=== PATIENT | male | born 1960 | race Caucasian/White ===

== ENCOUNTER → 2025-01-02 02:09 | Outpatient (CLI) | payer MEDICARE, SELFPAY ==
--- NOTE | 2025-01-02 | DI.CT_ITS ---
Exam(s) CT CHEST WO EXAM: CT CHEST WO CLINICAL HISTORY: SOLITARY PULMONARY NODULE, R91.1. TECHNIQUE: Multi planar reconstructions were performed. CONTRAST MATERIAL: None COMPARISON: CT CT CHEST LOW DOSE CANCER ANNUAL SCREENING from 12/22/2023 (outside institution). FINDINGS: CHEST: LUNGS: Tiny calcified granuloma measure measuring 1 mm in the right upper lobe is unchanged. Small fissure related nodule in the right lung remains unchanged. In the left lung previously described small nodule in the superior lingular segment appears unchanged. Bony excrescence on the inner aspect of the left anterior 5th rib is unchanged. No adjacent lung findings at this level. There are no pleural effusions. MEDIASTINUM: There is no obvious hilar nor mediastinal adenopathy. Visualized thyroid unremarkable.No obvious axillary adenopathy CARDIAC: Heart size is normal. There is no pericardial effusion.Ascending thoracic aorta is slightly prominent measuring 3.8 cm. VISUALIZED UPPER ABDOMEN:No adrenal masses. No ascites. OSSEOUS: Benign-appearing bony excrescence off the inner aspect of the anterior left 5th rib is again noted, unchanged. No lytic rib lesions identified. No compression fractures.. IMPRESSION: 1. Stable appearance of small benign-appearing bilateral lung nodules without significant change compared to prior outside CT scan of 12/22/2023. 2. No pleural effusions nor obvious intrathoracic adenopathy. 3. Appropriate follow-up is repeat CT scan in 1 year, earlier if clinically indicated. RADIATION DOSE DELIVERED: 221.66mGy.cm Total DLP DATA REPOSITORY: All CT scans at this facility are submitted to the National Radiology Data Registry (NRDR) Dose Index Registry (DIR) with the [employer] ([employer]). RADIATION OPTIMIZATION: All CT scans at this facility use at least one of these dose optimization techniques: automated exposure control; mA and/or kV adjustment per patient size (includes targeted exams where dose is matched to clinical indication); or iterative reconstruction.
== END ==
PROVIDERS: PCP Nurse Practitioner Family; Visit Provider Nurse Practitioner Family
DX: R91.1 Solitary pulmonary nodule (principal); R91.8 Other nonspecific abnormal finding of lung field
CPT/HCPCS: 71250

== ENCOUNTER 2025-01-12 19:17 | Emergency (ER) | payer MEDICARE, SELFPAY ==
[2025-01-12] VITALS (17 sets, daily range): BP systolic 138–155; BP diastolic 90–97; PULSE 56–86; RESP 10–20; TEMP 36.6; O2SAT 94–97
--- NOTE | 2025-01-12 20:22 | DI.RAD_ITS ---
Exam(s) XR TIB/FIB LT EXAM: XR TIB/FIB LT CLINICAL HISTORY: lateral sims pain. TECHNIQUE: 2D digital imaging was performed. COMPARISON: No exams were available for comparison FINDINGS: 3 views No evidence of obvious acute fracture. Thickened cortex in the proximal 3rd of the fibula may be healed fracture site. There are mild degenerative changes in the knee. In the proximal half of the tibia there is a subtle lucency in the anterior cortex, possibly stress reaction. Inferior calcaneal spur noted. Also calcification at the posterior calcaneus Achilles insertion site. IMPRESSION: On the lateral view there is a thin lucent line in the anterior cortex of the proximal half of the tibia. In correlation with any history of trauma or repetitive microtrauma. If clinically indicated follow-up MRI with tibial stress reaction protocol can be performed. DATA REPOSITORY: RADIATION DOSE DELIVERED:
--- NOTE | 2025-01-12 20:38 | W.ED.GENAD ---
Discharge Plan Disposition Patient Disposition: Home Condition: Good Discharge Details Clinical Impression: Pain in left sims Primary Care Provider: Chrissy Florian ED Provider: Kiana Edmonds Home Meds and New Rx's Prescriptions: New apixaban 5 mg tablet 5 mg PO BID Qty: 20 0RF Rx Instructions: Take 2 tablets (10 mg total) by mouth twice a day for 7 days, then 1 tablet (5 mg) twice a day by mouth No Action clonazepam [Klonopin] 0.5 mg tablet 0.5 mg PO BID PRN Rx Instructions: take 1 tablet twice a day by oral route as needed for 30 days, for anxiety/panic disorder tamsulosin 0.4 mg capsule 0.4 mg PO DAILY pantoprazole 40 mg tablet,delayed release (DR/EC) 40 mg PO DAILY lisinopril 10 mg tablet 10 mg PO DAILY escitalopram oxalate 20 mg tablet 20 mg PO DAILY clonazepam [Klonopin] 0.5 mg tablet 0.5 mg PO DAILY tamsulosin 0.4 mg capsule 0.4 mg PO DAILY pantoprazole 40 mg tablet,delayed release (DR/EC) 40 mg PO DAILY lisinopril 10 mg tablet 10 mg PO DAILY escitalopram oxalate [Lexapro] 20 mg tablet 20 mg PO DAILY Discharge Instructions Additional Instructions: Please follow-up according to instructions diagnostic imaging first thing Tuesday to schedule an outpatient ultrasound to evaluate for DVT in the left lower leg. Please call your primary care provider Tuesday to discuss results. The meantime, you are being treated with Eliquis for presumed DVT. Please take 10 mg by mouth twice a day for the first 7 days, then 5 mg twice a day. Continue until you are advised by your primary care provider or specialist. Return to emergency care if you develop new chest pain, difficulty breathing, episodes of passing out, experience any head injury, uncontrollable nosebleeds, rectal bleeding, or if you are very worried you need to be checked again immediately. Stand Alone Forms: Portal Information Referrals: Chrissy Florian [Primary Care Provider, Medicine] Discharge Orders Other Ambulatory Orders: US lower extremity venous LT (Routine) Timeframe: 3 Days Facility: [facility] - Location: DIAGNOSTIC IMAGING Ordered By: Kiana Sy HPI General Date/Time Provider Initiated Documentation: 01/12/25 19:20. HPI Narrative: Claudio is 64-year-old male who presents to the emergency department today for evaluation of left sims pain. He reports that this started this afternoon after waking up from a nap, denies associated trauma. Described as a sharp stabbing pain that is consistent, similar to previous episodes of DVT in his leg. Denies fever/chills, chest pain, shortness of breath, palpitations, distal numbness/tingling, other myalgias. No recent surgery/immobility or known inciting factors. 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 Denies history of GI bleed, regular EtOH use, cancer diagnosis, CVA/ICH, bleeding disorders. Related Data Home Medications Medication Instructions Recorded Confirmed clonazepam 0.5 mg tablet (Klonopin) 0.5 mg PO BID PRN 11/19/24 01/12/25 escitalopram oxalate 20 mg tablet 20 mg PO DAILY 11/19/24 01/12/25 lisinopril 10 mg tablet 10 mg PO DAILY 11/19/24 01/12/25 pantoprazole 40 mg tablet,delayed 40 mg PO DAILY 11/19/24 01/12/25 release tamsulosin 0.4 mg capsule 0.4 mg PO DAILY 11/19/24 01/12/25 clonazepam 0.5 mg tablet (Klonopin) 0.5 mg PO DAILY 12/06/24 01/12/25 escitalopram oxalate 20 mg tablet 20 mg PO DAILY 12/06/24 01/12/25 (Lexapro) lisinopril 10 mg tablet 10 mg PO DAILY 12/06/24 01/12/25 pantoprazole 40 mg tablet,delayed 40 mg PO DAILY 12/06/24 01/12/25 release tamsulosin 0.4 mg capsule 0.4 mg PO DAILY 12/06/24 01/12/25 apixaban 5 mg tablet 5 mg PO BID #20 tabs 01/12/25 Previous Rx's Medication Instructions Recorded apixaban 5 mg tablet 5 mg PO BID #20 tabs 01/12/25 Allergies Allergy/AdvReac Type Severity Reaction Status Date / Time No Known Allergies Allergy Verified 01/12/25 19:24 General Stated Complaint: Vascular JAREN: 3 Exam Const General: cooperative, healthy appearing, comfortable, no acute distress and well developed Nutritional Appearance: average body habitus and well nourished Orientation: alert and oriented x3 Resp Effort & Inspection: normal respiratory effort and able to speak in complete sentences Skin General skin exam: no rashes or lesions noted Trauma: no lacerations or abrasions Neuro General: patient alert, patient oriented x3, tone normal, moves all extremities and no focal motor deficits Motor: muscle tone normal throughout and strength 5/5 throughout Sensory Exam: no sensory deficits noted Extrem General: normal to inspection and full ROM Right lower extremity: normal to inspection, full ROM, normal capillary refill, lower leg Details: normal to inspection, tenderness (L lateral sims) and no edema; no erythema, no localized swelling, no palpable cords, no abrasions, no lacerations, no ecchymosis, no crepitus, no deformity and no unusual warmth and foot Details: normal capillary refill and no edema Course Vital Signs Vital signs: Vital Signs Temperature 36.6 C 01/12/25 19:21 Pulse 86 01/12/25 19:21 Respiratory Rate 20 01/12/25 19:21 Blood Pressure 138/93 H 01/12/25 19:21 Pulse Oximetry 96 01/12/25 19:21 Temperature 36.6 C 01/12/25 19:21 Pulse 86 01/12/25 19:21 Respiratory Rate 20 01/12/25 19:21 Blood Pressure 138/93 H 01/12/25 19:21 Blood Pressure Position Sitting 01/12/25 19:21 Pulse Oximetry 96 01/12/25 19:21 Oxygen Delivery Method Room Air 01/12/25 19:21 Oxygen Flow Rate 0 01/12/25 19:21 Medical Decision Making Claudio is a 64-year-old male who presents to the emergency department today for evaluation of left sims pain concerning for DVT based on his previous history. Denies other associated symptoms Physical exam remarkable for tenderness with palpation to left lateral sims. No erythema, warmth, or edema noted. +CMS to toes, no numbness/tingling or distal edema D/dx includes but is not limited to: DVT, superficial venous thrombus, muscle spasm, stress fracture, neuropathy I independently interpreted the following tests: CBC, CMP, magnesium reassuring. Creatinine 1.2, no baseline available for comparison. D-dimer elevated at 1332. As we do not have ultrasound available on the weekends, will order outpatient ultrasound for Tuesday morning. While in the emergency dept patient declined Tylenol. History and presentation most consistent with DVT, as patient has elevated D-dimer with symptoms identical to previous episode of DVT. Patient ultrasound ordered for Tuesday. Eliquis initiated. Recommend close follow-up with PCP for treatment/management of DVT. Reviewed discharge instructions with patient, including symptomatic management, use of Eliquis, importance of follow up with PCP, and red flags indicating need for return to emergency care. Pt voices agreement with plan of care Imaging Data Radiologic Study: Radiologist's impression: PROCEDURE INFORMATION: Exam: XR Left Tibia and Fibula Exam date and time: 01/12/2025 8:33 PM Age: 64 years old Clinical indication: Pain; Lower leg; Left; Additional info: Lateral sims pain, PT sts h/o blood clots, stopped taking blood thinners x 9 mo ago. TECHNIQUE: Imaging protocol: Radiologic exam of the left tibia and fibula. Views: 2 views. COMPARISON: No relevant prior studies available. FINDINGS: Bones/joints: No evidence of acute fracture or malalignment. Smooth contour irregularity along the lateral margin of the proximal fibular metadiaphysis on the AP view only likely represents variant contour irregularity at the muscular origins or possibly remote prior injury, with no features to favor acute injury or aggressive periostitis. Soft tissues: No gross soft tissue abnormalities. IMPRESSION: 1. No acute findings. 2. Smooth periosteal undulation at the lateral margin of the proximal fibula may relate to remote prior injury or anatomic variation. PFSH All Active Problems (Updated 01/12/25 @ 22:16 by Kiana Sy) Pain in left sims (Acute) Plantar fascial fibromatosis (Acute) Benign prostatic hyperplasia (Chronic) Hypertensive disorder (Chronic) Depressive disorder (Chronic) Anxiety disorder (Acute) Nicotine dependence (Acute) Erectile dysfunction (Acute) Lung cyst (Acute) Impaired fasting blood sugar (Acute) Male hypogonadism (Acute) Essential hypertension (Acute) Hyperlipidemia (Acute) Hypercoagulable state (Acute) Generalized anxiety disorder (Acute) GERD without esophagitis (Acute) Fatigue (Acute) DVT of lower extremity (deep venous thrombosis) (Acute) Cough (Acute) Bronchitis (Acute) Family History (Updated 11/19/24 @ 15:33 by Kerry Brock RN) Father Diabetes Prostate cancer Mother Polyp of colon Hypertension Son Mental health problem Social History (Updated 11/19/24 @ 15:31 by Kerry Brock RN) Smoking/Tobacco Use Status: Former Tobacco Use tobacco type: cigarettes Smoking risk assessment performed?: Yes Drug use: Occasionally Substance use type: marijuana PAWSS Have you Been Recently Intoxicated or Drunk Within the Last 30 days?: No Have you Ever Experienced Previous Episodes of Alcohol Withdrawal?: No Have you ever Experienced Withdrawal Seizures?: No Have you ever Experienced Delirium Tremens(DT)s?: No Have you ever undergone Alcohol Rehabilitation Treatment (i.e, inpt ot outpatient treatment programs)?: No Have you ever Experienced Blackouts?: No Have you ever Combined Alcohol with other Downers within the last 90 days?: No Have you ever Combined Alcohol with any other Substance of Abuse during the last 90 days?: No Positive Blood Alcohol level on Presentation? [PCS.BAL]: No Evidence of Increased Autonomic Activity (i.e. HR>120, tremor, sweating, agitation, nausea)?: No Result: 0
[2025-01-12 21:14] LABS: Abs Immature Grans 0.03 10^3/uL (0.0-0.06); HCT 47.4 % (40.0-50.0); HGB 15.8 g/dL (13.5-17.5); Immature Grans % 0.4 %; MCH 28.7 pg (27.0-33.0); MCHC 33.3 % (32.0-36.0); MCV 86 fL (80-95); MPV 10.0 fL (8.0-11.0); Platelet Count 222 10^3/uL (130-400); RBC 5.51 10^6/uL (4.36-5.78); RDW 12.6 % (11.8-14.1); RDW-SD 39.3 fL; WBC 7.97 10^3/uL (4.4-10.8)
--- NOTE | 2025-01-12 21:20 | DI.VRAD_ITS ---
PROCEDURE INFORMATION: Exam: XR Left Tibia and Fibula Exam date and time: 01/12/2025 8:33 PM Age: 64 years old Clinical indication: Pain; Lower leg; Left; Additional info: Lateral sims pain, PT sts h/o blood clots, stopped taking blood thinners x 9 mo ago. TECHNIQUE: Imaging protocol: Radiologic exam of the left tibia and fibula. Views: 2 views. COMPARISON: No relevant prior studies available. FINDINGS: Bones/joints: No evidence of acute fracture or malalignment. Smooth contour irregularity along the lateral margin of the proximal fibular metadiaphysis on the AP view only likely represents variant contour irregularity at the muscular origins or possibly remote prior injury, with no features to favor acute injury or aggressive periostitis. Soft tissues: No gross soft tissue abnormalities. IMPRESSION: 1. No acute findings. 2. Smooth periosteal undulation at the lateral margin of the proximal fibula may relate to remote prior injury or anatomic variation. Dictated and Authenticated by: Shaggy Field MD. Orderin Bria Bruno MD
[2025-01-12 21:30] LABS: Magnesium 2.1 mg/dL (1.6-2.6)
[2025-01-12 21:31] LABS: ALT 28 U/L (10-49); AST 23 U/L (<34); Albumin 4.7 g/dL (3.4-5.0); Alkaline Phosphatase 41 U/L (46-116); Anion Gap 7 mmol/L (3-11); BUN 12 mg/dL (9-23); Bilirubin, Total 0.80 mg/dL (0.2-1.2); CO2 30.0 mmol/L (20.0-31.0); Calcium 9.9 mg/dL (8.3-10.6); Chloride 105 mmol/L (98-107); Glucose 95 mg/dL (74-106); Potassium 3.9 mmol/L (3.5-5.1); Sodium 142 mmol/L (136-145); Total Protein 7.3 g/dL (5.7-8.2)
[2025-01-12 21:38] LABS: D-Dimer 1332 ng/mlFEU (<500)
[2025-01-12] MEDS: Apixaban 5 MG TAB 10 MG PO ×2 (22:39)
== END 2025-01-12 22:35 | disposition home or self-care (01) ==
PROVIDERS: Emergency Provider Nurse Practitioner Family; PCP Nurse Practitioner Family
DX: M79.662 Pain in left lower leg (principal)
CPT/HCPCS: 99283; 99284; 36415; 80053; 73590; 83735; 85025; 85379

== ENCOUNTER → 2025-01-14 07:49 | Outpatient (CLI) | payer MEDICARE, SELFPAY ==
--- NOTE | 2025-01-14 07:00 | DI.US_ITS ---
Exam(s) US LOWER EXTREMITY VENOUS LT EXAM: US LOWER EXTREMITY VENOUS LT CLINICAL HISTORY: L sims pain, + d-dimer, h/o DVT with same sx,m79.662. TECHNIQUE: Lower extremity venous ultrasound performed using grayscale, color- flow, and spectral Doppler analysis. COMPARISON: No exams were available for comparison FINDINGS: The common femoral, femoral and popliteal veins demonstrate normal compressibility, augmentation, and color Doppler. The posterior and anterior tibial as well as peroneal veins are patent. No saphenous vein thrombosis or other superficial venous thrombosis is seen. No hematoma or Singh's cyst is seen. IMPRESSION: Negative lower extremity ultrasound. No evidence of DVT. DATA REPOSITORY:
== END ==
LOC: DI 07:49
PROVIDERS: PCP Nurse Practitioner Family; Visit Provider Nurse Practitioner Family
DX: M79.662 Pain in left lower leg (principal)
CPT/HCPCS: 93971

== ENCOUNTER → 2025-01-18 02:46 | Outpatient (CLI) | payer MEDICARE, SELFPAY ==
--- NOTE | 2025-01-18 08:19 | DI.RAD_ITS ---
Exam(s) XR FOOT LT COMPLETE XR FOOT RT COMPLETE EXAM: XR FOOT RT COMPLETE CLINICAL HISTORY: PLANTAR FASCIAL FIBROMATOSIS, M72.2. TECHNIQUE: 2D digital imaging was performed. Three views of both feet, weight- bearing. COMPARISON: CR XR FOOT LT COMPLETE from 01/18/2025 FINDINGS: BONES: No acute fracture is present. No bony destructive lesion is seen. Plantar calcaneal spurs are present. There is calcification at the distal Achilles tendon bilateral. JOINTS: No dislocation present. Minimal degenerative changes. The plantar arches are maintained. SOFT TISSUE: Normal. IMPRESSION: Bilateral heel spurs. DATA REPOSITORY: RADIATION DOSE DELIVERED:
== END ==
LOC: DI 02:46
PROVIDERS: PCP Nurse Practitioner Family; Visit Provider Nurse Practitioner Family
DX: M72.2 Plantar fascial fibromatosis (principal); M77.31 Calcaneal spur, right foot; M77.32 Calcaneal spur, left foot
CPT/HCPCS: 73630